=== PATIENT | male | born 1995 | race Caucasian/White ===

== ENCOUNTER 2019-05-18 09:01 | Emergency (ER) | payer OTHER ==
[~2019-05-18] VITALS: Ht 167.6 cm; Wt 59.0 kg
[2019-05-18 09:24] LABS: ABSOLUTE NEUTROPHILS 7.9 thou/uL (1.4-8.2); BASOPHILS 0.6 % (0.0-2.0); EOSINOPHILS 1.5 % (0.0-3.0); HEMATOCRIT 43.1 % (42.0-52.0); HEMOGLOBIN 14.6 gm/dL (14.0-18.0); LYMPHOCYTES 22.1 % (24.0-44.0); MCH 31.3 pg (26.0-34.0); MCV 92.3 fL (80.0-100.0); MONOCYTES 5.8 % (1.0-8.0); PLATELET COUNT 368 thou/uL (150-400); RBC 4.67 mil/uL (4.50-6.00); RDW 12.7 % (10.5-14.5); WBC 11.4 thou/uL (4.0-11.0)
[2019-05-18 09:33] LABS: CALCIUM 9.1 mg/dL (8.5-10.1); POTASSIUM 3.5 mmol/L (3.5-5.1)
[2019-05-18 09:39] LABS: TOTAL PROTEIN 7.9 g/dL (6.4-8.2)
[2019-05-18 10:12] LABS: URINE BILIRUBIN NEGATIVE (Negative); URINE BLOOD NEGATIVE (Negative); URINE CLARITY CLEAR; URINE COLOR YELLOW; URINE GLUCOSE-RANDOM* NEGATIVE (Negative); URINE KETONES NEGATIVE (Negative); URINE LEUKOCYTES-REFLEX NEGATIVE (Negative); URINE NITRITE-REFLEX NEGATIVE (Negative); URINE PROTEIN (DIPSTICK) NEGATIVE (Negative)
[2019-05-18 10:21] LABS: AMP/METHAMP POSITIVE (Negative); BARBITURATES Negative (Negative); BENZODIAZEPINES Negative (Negative); COCAINE Negative (Negative); METHADONE Negative (Negative); OPIATES Negative (Negative); PCP Negative (Negative)
[2019-05-18 11:19] VITALS: BP 118/82
[2019-05-18] MEDS ORDERED: MOBIC15 MG PO (11:39)
[2019-05-18] MEDS ORDERED: AUGMENTIN 875-1 EACH PO (11:39)
[2019-05-18 11:44] VITALS: BP 118/82
--- NOTE | 2019-05-19 08:10 | EKG ---
[place] [address] [employer] [facility] 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: VANESSA : 1995 Requested By: April Farley Order Number: [id number] MD: Royal Matt Measurements Intervals [place] Rate: 85 P: -73 RI: 110 QRS: 78 QRSD: 109 T: 70 QT: 378 QTc: 450 Interpretive Statements Normal sinus rhythm Borderline short RI interval RSR' in V1 or V2, right VCD or RVH Baseline wander in lead(s) V1 No previous ECG available for comparison Electronically Signed On 05-19-2019 8:10:06 CDT by Royal Matt [email or web address] ��������������������������������������������� <ELECTRONICALLY SIGNED> ���������������������������������������� By: Royal Matt MD ��������������������������������������������� 05/19/19809 5 5 Royal Matt MD /LINETTE
== END 2019-05-18 11:44 | disposition home or self-care (01) ==
LOC: ER 09:01
PROVIDERS: Emergency Medicine
DX: L03.012 Cellulitis of left finger (principal); F17.210 Nicotine dependence, cigarettes, uncomplicated

== ENCOUNTER 2019-05-20 21:17 | Emergency (ER) | payer OTHER ==
[~2019-05-20] VITALS: Ht 167.6 cm; Wt 54.4 kg
[~2019-05-20 21:17] MED LIST: AUGMENTIN 875-1 EACH PO; MOBIC15 MG PO
[2019-05-21 00:05] VITALS: BP 137/87
== END 2019-05-21 00:07 | disposition home or self-care (01) ==
LOC: ER 21:17
DX: L02.512 Cutaneous abscess of left hand (principal); F17.210 Nicotine dependence, cigarettes, uncomplicated

== ENCOUNTER 2019-07-08 12:31 | Emergency (ER) | payer OTHER ==
[~2019-07-08] VITALS: Ht 165.1 cm; Wt 54.4 kg
[2019-07-08 15:11] VITALS: BP 135/78
== END 2019-07-08 15:12 | disposition home or self-care (01) ==
LOC: ER 12:31
DX: S01.81XA Laceration without foreign body of other part of head, initial encounter (principal); S61.210A Laceration without foreign body of right index finger without damage to nail, initial encounter; F90.9 Attention-deficit hyperactivity disorder, unspecified type; F31.9 Bipolar disorder, unspecified; F20.9 Schizophrenia, unspecified; F17.210 Nicotine dependence, cigarettes, uncomplicated; Y08.89XA Assault by other specified means, initial encounter; Y93.89 Activity, other specified; Y92.89 Other specified places as the place of occurrence of the external cause; Y99.8 Other external cause status

== ENCOUNTER 2019-08-12 15:58 | Emergency (ER) | payer OTHER ==
[~2019-08-12] VITALS: Ht 167.6 cm; Wt 54.4 kg
[2019-08-12 16:49] LABS: ABSOLUTE NEUTROPHILS 5.8 thou/uL (1.4-8.2); BASOPHILS 0.6 % (0.0-2.0); EOSINOPHILS 1.4 % (0.0-3.0); HEMATOCRIT 46.1 % (42.0-52.0); HEMOGLOBIN 15.9 gm/dL (14.0-18.0); LYMPHOCYTES 24.8 % (24.0-44.0); MCHC 34.4 g/dL (28.0-37.0); MCV 93.1 fL (80.0-100.0); MONOCYTES 7.2 % (1.0-8.0); PLATELET COUNT 308 thou/uL (150-400); RBC 4.96 mil/uL (4.50-6.00); RDW 13.4 % (10.5-14.5); WBC 8.7 thou/uL (4.0-11.0)
[2019-08-12 18:05] LABS: ALBUMIN 3.6 g/dL (3.4-5.0); CALCIUM 8.9 mg/dL (8.5-10.1); CREATININE 0.9 mg/dL (0.7-1.3); POTASSIUM 3.6 mmol/L (3.5-5.1); TOTAL BILIRUBIN 0.3 mg/dL (<0.1-1.0); TOTAL PROTEIN 7.1 g/dL (6.4-8.2)
[2019-08-12 18:10] LABS: AMP/METHAMP POSITIVE (Negative); BARBITURATES Negative (Negative); BENZODIAZEPINES Negative (Negative); COCAINE Negative (Negative); METHADONE Negative (Negative); OPIATES Negative (Negative); PCP Negative (Negative)
[2019-08-12] MEDS ORDERED: DOXYCYCLINE 10100 MG PO (20:15)
[2019-08-12 20:33] VITALS: BP 147/84
== END 2019-08-12 20:34 | disposition home or self-care (01) ==
LOC: ER 15:58
PROVIDERS: Nurse Practitioner; Physician Assistant
DX: R45.851 Suicidal ideations (principal); L03.011 Cellulitis of right finger; R50.9 Fever, unspecified; J11.1 Influenza due to unidentified influenza virus with other respiratory manifestations; F17.210 Nicotine dependence, cigarettes, uncomplicated; F15.90 Other stimulant use, unspecified, uncomplicated; F20.9 Schizophrenia, unspecified; F31.9 Bipolar disorder, unspecified

== ENCOUNTER 2020-06-12 17:10 | Emergency (ER) | payer OTHER ==
[~2020-06-12] VITALS: Ht 175.3 cm; Wt 63.5 kg
[~2020-06-12 17:10] MED LIST changes: +DOXYCYCLINE 10100 MG PO
[2020-06-12 21:03] VITALS: BP 146/104
[2020-06-13] MEDS ORDERED: PENICILLIN VK500 MG PO (01:07)
== END 2020-06-12 21:03 | disposition left against medical advice (07) ==
LOC: ER 17:10
DX: K08.89 Other specified disorders of teeth and supporting structures (principal); Z53.21 Procedure and treatment not carried out due to patient leaving prior to being seen by health care provider

== ENCOUNTER 2020-06-12 23:35 | Emergency (ER) | payer OTHER ==
[~2020-06-12] VITALS: Ht 170.2 cm; Wt 59.0 kg
[2020-06-13] MEDS ORDERED: PENICILLIN VK500 MG PO (01:07)
[2020-06-13 01:26] VITALS: BP 131/91
== END 2020-06-13 01:30 | disposition home or self-care (01) ==
LOC: ER 23:35
DX: K04.7 Periapical abscess without sinus (principal); F17.210 Nicotine dependence, cigarettes, uncomplicated

== ENCOUNTER 2021-10-17 03:25 | Emergency (ER) | payer OTHER ==
[~2021-10-17] VITALS: Ht 170.2 cm; Wt 67.6 kg
[~2021-10-17 03:25] MED LIST changes: +PENICILLIN VK500 MG PO
[2021-10-17 04:10] LABS: ABSOLUTE NEUTROPHILS 4.3 thou/uL (1.4-8.2); BASOPHILS 0.7 % (0.0-2.0); EOSINOPHILS 1.4 % (0.0-3.0); HEMATOCRIT 40.6 % (42.0-52.0); HEMOGLOBIN 13.8 gm/dL (14.0-18.0); LYMPHOCYTES 35.8 % (24.0-44.0); MCH 31.4 pg (26.0-34.0); MCHC 34.1 g/dL (28.0-37.0); MCV 92.1 fL (80.0-100.0); MONOCYTES 8.4 % (1.0-8.0); PLATELET COUNT 335 thou/uL (150-400); POLYS 53.7 % (36.0-66.0); RBC 4.41 mil/uL (4.50-6.00); RDW 12.3 % (10.5-14.5)
[2021-10-17 04:10] LABS: URINE BILIRUBIN NEGATIVE (Negative); URINE BLOOD NEGATIVE (Negative); URINE CLARITY CLEAR; URINE COLOR YELLOW; URINE GLUCOSE-RANDOM* NEGATIVE (Negative); URINE KETONES NEGATIVE (Negative); URINE LEUKOCYTES-REFLEX NEGATIVE (Negative); URINE NITRITE-REFLEX NEGATIVE (Negative); URINE PROTEIN (DIPSTICK) NEGATIVE (Negative); URINE SPECIFIC GRAVITY 1.025 (1.005-1.035)
[2021-10-17 04:11] LABS: ANION GAP 9 mmol/L (7-16); BUN 18 mg/dL (7-18); CALCIUM 8.6 mg/dL (8.5-10.1); CHLORIDE 105 mmol/L (98-107); CO2 24 mmol/L (21-32); CREATININE 0.8 mg/dL (0.7-1.3); GLUCOSE 143 mg/dL (74-106); POTASSIUM 3.7 mmol/L (3.5-5.1); SODIUM 138 mmol/L (136-145)
[2021-10-17 04:17] LABS: ALBUMIN 3.2 g/dL (3.4-5.0); SALICYLATE < 2.8 mg/dL (2.8-20.0); SGOT 145 U/L (15-37); SGPT 228 U/L (16-63); TOTAL PROTEIN 6.6 g/dL (6.4-8.2)
[2021-10-17 04:17] LABS: AMP/METHAMP POSITIVE (Negative); BARBITURATES Negative (Negative); BENZODIAZEPINES Negative (Negative); COCAINE Negative (Negative); METHADONE Negative (Negative); OPIATES Negative (Negative); PCP Negative (Negative)
[2021-10-17 05:33] VITALS: BP 139/75
--- NOTE | 2021-10-17 07:18 | EKG ---
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 : 1995 Requested By: Davian Salgado Order Number: [id number] MD: Eleno Metzger Measurements Intervals [place] Rate: 87 P: -87 MO: 121 QRS: 75 QRSD: 82 T: 71 QT: 362 QTc: 436 Interpretive Statements Ectopic atrial rhythm Baseline wander in lead(s) I,aVR,V1,V2,V3,V4,V5 Compared to ECG 05/18/2019 09:16:38 Ectopic atrial rhythm now present ST (T wave) deviation now present Sinus rhythm no longer present Right ventricular hypertrophy no longer present Electronically Signed On 10-17-2021 7:18:03 CLIMATE CHANGE RISK ASSESSOR by Eleno Metzger [email or web address] <ELECTRONICALLY SIGNED> By: Eleno Metzger MD, FAC 10/17/21 0718 0420 0420 Eleno Metzger MD, [facility] /EPI
--- NOTE | 2021-10-17 07:18 | EKG ---
[facility] [place] [address] ELECTROCARDIOGRAM REPORT Name: NATALIA WARREN Room #: DEP SEDRICK Roberto#: [id number] Admission: 10/17/21 Attend Phys: Discharge: 10/17/21 Date of : [birth year] Report #: [id number] [facility] ED Test Date: 2021-10-17 Test Time: 05:01:02 Pat Name: NATALIA WARREN Department: Room: Gender: M Lead Project Manager: CHRISTO : 1995 Requested By: Davian Salgado Order Number: [id number] MD: Eleno Metzger Measurements Intervals [place] Rate: 78 P: -88 NE: 118 QRS: 74 QRSD: 99 T: 63 QT: 383 QTc: 437 Interpretive Statements Ectopic atrial rhythm Borderline short NE interval RSR' in V1 or V2, right VCD or RVH ST elev, probable normal early repol pattern Baseline wander in lead(s) I,III,aVL,aVF,V4 Compared to ECG 10/17/2021 04:20:38 Right ventricular hypertrophy now present RSR' in V1 or V2 now present ST (T wave) deviation still present Electronically Signed On 10-17-2021 7:18:12 MARKETING CONTENT SPECIALIST by Eleno Metzger [email or web address] <ELECTRONICALLY SIGNED> By: Eleno Metzger MD, FACC 10/17/21 0718 050 050 Eleno Metzger MD, [facility] /EPI
== END 2021-10-17 05:36 | disposition home or self-care (01) ==
LOC: ER 03:25
PROVIDERS: Emergency Medicine
DX: R44.0 Auditory hallucinations (principal); Z20.822 Contact with and (suspected) exposure to COVID-19; G62.9 Polyneuropathy, unspecified; F31.9 Bipolar disorder, unspecified; F17.210 Nicotine dependence, cigarettes, uncomplicated; F12.90 Cannabis use, unspecified, uncomplicated; Z79.899 Other long term (current) drug therapy